=== PATIENT | female | born 1930 | race Caucasian/White ===

== ENCOUNTER 2017-06-03 13:27 | Inpatient (IN) | payer OTHER, MEDICARE ==
--- NOTE | 2017-06-03 13:48 | PDOC ---
History of Present Illness - General History Source: Patient, Old Records Exam Limitations: No Limitations - History of Present Illness Initial Comments: 06/03/17 13:48 The patient is an 86-year-old woman with a significant past medical history or hypertension, hypercholesterolemia, atrial fibrillation (on Xarelto), congestive heart failure (on Lasix), cerebrovascular accident and thyroid disease who was advised to present to the emergency department by her PMD, Dr. Berumen for further evaluation of shortness of breath. As per patient;s daughter , she states that the patient has been progressively short of breath for the past few weeks. Patient was evaluated by Dr. Berumen, on May 19 for which an increase in her Lasix regime was recommended. She is typically on 20 mg of Lasix Q.D, however, she was started on 60 mg // and 40 mg every other day. Despite compliance with her new regime, she returned to Dr. Berumen's office today for a follow up for which it was determined that she was only 50% better and she recommended an ED admission. As per patient, she states that she feels short of breath on exertion (walking a few steps). She denies feeling short of breath while lying flat. She also reports endorsing a mild cough with occasional phlegm. No fever, chills, weakness, chest pain, lightheadedness, dizziness, abdominal pain, back pain, nausea, vomiting, diarrhea. No urinary complaints. Allergies: Fish Containing Products. Penicillin. Past Surgical History: Left Bunionectomy Social History: Former smokes. No EtOH and recreational drug use. Primary Care Physician: Dr. Sarah Berumen <Tala Tidwell - Last Filed: 06/03/17 16:14> <Los Knight - Last Filed: 06/03/17 16:16> - General Chief Complaint: Shortness of Breath Stated Complaint: SOB (PCP SENT) Time Seen by Provider: 06/03/17 13:47 Past History <Tala Tidwell - Last Filed: 06/03/17 16:14> - Past Medical History Anemia: Yes (01/05,TOOK IRON TABLETS) Asthma: No Cancer: No Cardiac Disorders: Yes ( FIB 2006) CVA: Yes (2005) COPD: No CHF: No Dementia: No Diabetes: No GI Disorders: No Disorders: No HTN: Yes Hypercholesterolemia: Yes Liver Disease: No Suicide Attempt (Hx): No Seizures: No Thyroid Disease: Yes - Surgical History Abdominal Surgery: No Appendectomy: No Cardiac Surgery: No Cholecystectomy: No Lung Surgery: No Neurologic Surgery: No Orthopedic Surgery: Yes (LEFT BUNIONECTOMY) - Psycho/Social/Smoking Cessation Hx Anxiety: No Suicidal Ideation: No Smoking Status: Yes Smoking History: Former smoker Have you smoked in the past 12 months: No Number of Cigarettes Smoked Daily: 0 If you are a former smoker, when did you quit?: 22 YRS AGO Information on smoking cessation initiated: No Hx Alcohol Use: No Drug/Substance Use Hx: No Substance Use Type: None Hx Substance Use Treatment: No <Los Knight - Last Filed: 06/03/17 16:16> - Past Medical History Allergies/Adverse Reactions: Allergies Allergy/AdvReac Type Severity Reaction Status Date / Time Fish Containing Products Allergy Intermediate Verified 06/03/17 13:31 Penicillins Allergy Rash Verified 06/03/17 13:31 Home Medications: Ambulatory Orders Levothyroxine [Synthroid -] 50 mcg PO DAILY #0 tablet 01/24/12 Nebivolol [Bystolic -] 5 mg PO DAILY #0 tab 01/24/12 Furosemide [Lasix -] 40 mg PO DAILY 02/25/12 Rosuvastatin [Crestor -] 5 mg PO HS 04/28/12 Valsartan [Diovan] 160 mg PO DAILY 04/28/12 Rivaroxaban [Xarelto -] 10 mg PO HS 04/11/14 Oxycodone HCl 5 mg PO Q4H PRN 05/01/15 Potassium Chloride Oral Soln [KCl Oral Solution -] 20 meq PO DAILY 05/01/15 Oxycodone HCl/Acetaminophen [Percocet 5/325 -] 1 tab PO Q4H PRN #20 tablet 05/03 Review of Systems - Review of Systems Constitutional: No: Chills, Fever Respiratory: Yes: Cough, Shortness of Breath, SOB with Exertion Cardiac (ROS): No: Chest Pain ABD/GI: No: Diarrhea, Vomiting : No: Dysuria, Frequency All Other Systems: Reviewed and Negative <Los Knight - Last Filed: 06/03/17 16:16> *Physical Exam - Vital Signs Last Vital Signs Temp Pulse Resp BP Pulse Ox 97.6 F 78 22 122/67 97 06/03/17 13:32 06/03/17 13:32 06/03/17 13:32 06/03/17 13:32 06/03/17 13:32 - Physical Exam Comments: 06/03/17 13:48 GENERAL: The patient is awake, alert, and fully oriented, in no acute distress. Speaking in full sentences. HEAD: Normal with no signs of trauma. EYES: Pupils equal, round and reactive to light, extraocular movements intact, sclera anicteric, conjunctiva clear with no pallor. ENT: Ears normal, nares patent, oropharynx clear without exudates. Moist mucous membranes. NECK: Normal range of motion, supple without lymphadenopathy, JVD, or masses. LUNGS: Bilateral crackles to the mid lung [place]. HEART: Irregularly irregular rate and rhythm. ABDOMEN: Soft/nontender/nondistended. BS wnl. No guarding or rebound. No palpable masses. No hepatosplenomegaly. EXTREMITIES: Normal range of motion, 1+ edema. scattered varicosities No clubbing or cyanosis. No cords, erythema, or tenderness. NEUROLOGICAL: Cranial nerves II through XII grossly intact. Normal speech. PSYCH: Normal mood, normal affect. SKIN: Warm, Dry, normal turgor, no rashes or lesions noted. <Tala Tidwell - Last Filed: 06/03/17 16:14> - Vital Signs Last Vital Signs Temp Pulse Resp BP Pulse Ox 97.6 F 78 22 122/67 97 06/03/17 13:32 06/03/17 13:32 06/03/17 13:32 06/03/17 13:32 06/03/17 13:32 <Los Knight - Last Filed: 06/03/17 16:16> Heart Score/ECG Review #1 ECG reviewed & interpreted by me at: 14:20 Compared to previous ECG there are: No significant change (c/w 2013 EKG) 06/03/17 15:36 afib at 70, TWI AVL, isolated Q in III. no acute ST changes <Los Knight - Last Filed: 06/03/17 16:16> ED Treatment Course - LABORATORY CBC & Chemistry Diagram: 06/03/17 14:12 06/03/17 14:12 <Stone Tidwelline - Last Filed: 06/03/17 16:14> - LABORATORY CBC & Chemistry Diagram: 06/03/17 14:12 06/03/17 14:12 <Los Knight - Last Filed: 06/03/17 16:16> Medical Decision Making - Medical Decision Making 06/03/17 15:[address] Del Valle 06/03/17 15:[address] Del Valle 06/03/17 16:[address] Meghna Sparks. 06/03/17 16:[address] Caleb Madison. Immediate response. Case was discussed. <Tala Tidwell - Last Filed: 06/03/17 16:14> - Medical Decision Making 06/03/17 15:38 A portion of this note was documented by scribe services under my direction. I have reviewed the details of the note, within reason, and agree with the documentation with the following case summary and management plan written by me. 86y/o F h/o afib, mild CHF on lasix p/w progressive LOCKE despite increasing doses of lasix as outpt. no cp, mild dry cough, no wt loss/night sweats. + edema. VSS well appearing, speaking full sentences b/l crackles to mid lung [place] irregular abd soft 1+ edema, scattered varicosities 86y/o F with worsening LOCKE. labs wnl: trop negative, BNP slightly above baseline, Cr 1.6 ekg as noted CXR, on my prelim review, shows Left middle lobe density/consolidation. not consistent with pna, will check noncontrast CT given Cr 1.6. dose iv lasix given b/l crackles/pulmonary edema proceed with admission plan as per Dr. Berumen. 06/03/17 16:16 Accepted for obs tele by Dr. Madison, admitting for Dr. Berumen. Dr. Cali, patient's computer systems security analyst, consulted. <Los Knight - Last Filed: 06/03/17 16:16> *DC/Admit/Observation/Transfer - Attestations Scribe Attestion: 06/03/17 14:28 Documentation prepared by Tala Tidwell, acting as medical claims processor for Los Knight MD. <Tala Tidwell - Last Filed: 06/03/17 16:14> - Discharge Dispostion Admit: Yes <Los Knight - Last Filed: 06/03/17 16:16> Diagnosis at time of Disposition: Dyspnea on exertion - Discharge Dispostion Condition at time of disposition: Fair - Referrals Referrals: Sarah Berumen MD [Primary Care Provider] -
[2017-06-03 14:36] LABS: BASOPHIL 1.1 % (0-2.0); EOSINOPHIL 2.2 % (0-4.5); MCH 28.6 pg (25.7-33.7); MCHC 33.6 g/dl (32.0-36.0); MEAN CELL VOLUME 85.2 fl (80-96); MEAN PLT VOLUME 8.4 fl (7.5-11.1); NEUTROPHILS 69.4 % (42.8-82.8); PLATELET COUNT 267 K/MM3 (134-434); RDW 16.2 % (11.6-15.6); WHITE BLOOD COUNT 6.4 K/mm3 (4.0-10.0)
[2017-06-03 14:57] LABS: ALBUMIN 3.7 g/dl (3.4-5.0); ANION GAP 10 (8-16); BILIRUBIN,TOTAL 0.3 mg/dL (0.2-1.0); CO2 23 mmol/L (21-32); CREATININE 1.6 mg/dL (0.55-1.02); GLUCOSE,RANDOM 114 mg/dL (74-106); MAGNESIUM 2.2 mg/dL (1.8-2.4); SGOT/AST 17 U/L (15-37); SGPT/ALT 15 U/L (12-78); TOT PROT 6.9 g/dl (6.4-8.2)
[2017-06-03 14:59] LABS: ALK PHOS 63 U/L (45-117); TROPONIN I < 0.02 ng/ml (0.00-0.05)
[2017-06-03 15:14] LABS: INR 1.28 (0.82-1.09); PROTHROMBIN TIME (PATIENT) 14.1 SEC (9.98-11.88)
[2017-06-03] MEDS ORDERED: FUROSEMIDE 40 MG/4 ML INJECTABLE VIAL IVPUSH ONE (15:15)
[2017-06-03] MEDS ORDERED: FUROSEMIDE 40 MG/4 ML INJECTABLE VIAL ONE (15:30)
--- NOTE | 2017-06-03 16:45 | EKG ---
Test Reason : Blood Pressure : / mmHG Vent. Rate : 070 BPM Atrial Rate : 058 BPM P-R Int : 000 ms QRS Dur : 082 ms QT Int : 414 ms P-R-T Axes : 000 015 075 degrees QTc Int : 447 ms ATRIAL FIBRILLATION WITH MODERATE VENTRICULAR RESPONSE POSSIBLE INFERIOR INFARCT , AGE UNDETERMINED CANNOT RULE OUT ANTERIOR INFARCT , AGE UNDETERMINED ABNORMAL ECG WHEN COMPARED WITH ECG OF 24-APR-2015 14:16, ATRIAL FIBRILLATION HAS REPLACED SINUS RHYTHM CORELATE CLINICALLY AND REPEAT ECG IF INDICATED Confirmed by KERRI MERCADO MD ([id number]) on 06/03/2017 4:44:48 PM Referred By: Confirmed By:KERRI MERCADO MD
[2017-06-03 18:36] VITALS: BMI 29.3
[2017-06-03] MEDS ORDERED: ACETAMINOPHEN 325 MG TABLET (FP) PO PRN (19:37)
[2017-06-03] MEDS: ATORVASTATIN CA 10 MG TABLET (FP) PO SCH (21:52)
[2017-06-03] MEDS: RIVAROXABAN 10 MG TABLET PO SCH (21:52)
--- NOTE | 2017-06-04 01:46 | CON.CARD ---
Consult Consult Specialty:: cardiology Reason for Consultation:: shortness of breath - History of Present Illness Chief Complaint: A&O; less short of breath, but still dyspneic on minimal exertion; anxious History of Present Illness: The patient is an 86-year-old woman with a significant past medical history or hypertension, hypercholesterolemia, atrial fibrillation (on Xarelto), congestive heart failure (on Lasix), cerebrovascular accident and thyroid disease who was advised to present to the emergency department by her PMD, Dr. Berumen for further evaluation of shortness of breath. As per patient;s daughter , she states that the patient has been progressively short of breath for the past few weeks. Patient was evaluated by Dr. Berumen, on May 19 for which an increase in her Lasix regime was recommended. She is typically on 20 mg of Lasix Q.D, however, she was started on 60 mg // and 40 mg every other day. Despite compliance with her new regime, she returned to Dr. Berumen's office today for a follow up for which it was determined that she was only 50% better and she recommended an ED admission. As per patient, she states that she feels short of breath on exertion (walking a few steps). She denies feeling short of breath while lying flat. She also reports endorsing a mild cough with occasional phlegm. No fever, chills, weakness, chest pain, lightheadedness, dizziness, abdominal pain, back pain, nausea, vomiting, diarrhea. No urinary complaints. Allergies: Fish Containing Products. Penicillin. Past Surgical History: Left Bunionectomy Social History: Former smokes. No EtOH and recreational drug use. Primary Care Physician: Dr. Sarah Berumen - History Source History Provided By: Medical Record - Past Medical History Cardio/Vascular: Yes: AFIB, HTN Reproductive: Yes: Postmenopausal ...: No Endocrine: Yes: Hypothyroidism - Alcohol/Substance Use Hx Alcohol Use: No - Smoking History Smoking history: Former smoker Have you smoked in the past 12 months: No Aproximately how many cigarettes per day: 0 If you are a former smoker, when did you quit?: 22 YRS AGO Home Medications - Allergies Allergies/Adverse Reactions: Allergies Allergy/AdvReac Type Severity Reaction Status Date / Time Fish Containing Products Allergy Intermediate Verified 06/03/17 13:31 Penicillins Allergy Rash Verified 06/03/17 13:31 - Home Medications Home Medications: Ambulatory Orders Nebivolol [Bystolic -] 5 mg PO DAILY #0 tab 01/24/12 Valsartan [Diovan] 160 mg PO DAILY 04/28/12 Rivaroxaban [Xarelto -] 10 mg PO HS 04/11/14 Levothyroxine [Synthroid -] 88 mcg PO MOTUWETHFR 06/03/17 Simvastatin [Zocor -] 5 mg PO HS 06/03/17 Aclidinium [place] [Tudorza -] 1 inh PO BID #1 aero.powd 06/05/17 Furosemide [Lasix] 40 mg PO DAILY #30 tablet 06/05/17 Levothyroxine [Synthroid -] 100 mcg PO SUSA #60 tab 06/05/17 Review of Systems - Review of Systems Constitutional: reports: Weakness Eyes: reports: No Symptoms HENT: reports: No Symptoms Neck: reports: No Symptoms Cardiovascular: reports: Shortness of Breath Respiratory: reports: SOB Gastrointestinal: reports: No Symptoms Genitourinary: reports: No Symptoms Breasts: reports: No Symptoms Reported Musculoskeletal: reports: Muscle Weakness Integumentary: reports: No Symptoms Neurological: reports: No Symptoms Psychiatric: reports: Anxiety - Risk Factors Known Risk Factors: Yes: Age, Hypercholesterolemia, Hypertension, Other (AF) Vital Signs: Vital Signs Temperature 97.7 F 06/03/17 22:00 Pulse Rate 77 06/03/17 22:00 Respiratory Rate 18 06/03/17 22:00 Blood Pressure 113/56 06/03/17 22:00 O2 Sat by Pulse Oximetry (%) 97 06/03/17 21:00 Constitutional: Yes: Anxious Eyes: Yes: WNL HENT: Yes: WNL Neck: Yes: WNL Respiratory: Yes: Regular Gastrointestinal: Yes: Soft Renal/: No: Anuria Cardiovascular: Yes: Pulse Irregular JVD: No Carotid Bruit: No PMI: Displaced Heart Sounds: Yes: S1 (varies in intensity) Murmur: Yes: Systolic Murmur, Grade 2 Musculoskeletal: Yes: Muscle Weakness Edema: No Peripheral Pulses WNL: Yes Integumentary: Yes: WNL Neurological: Yes: Alert, Oriented, Weakness Psychiatric: Yes: Other - Other Data Labs, Other Data: INR, PTT INR 1.28 (0.82-1.09) H 06/03/17 14:12 Imaging - Results Chest X-ray: Image Reviewed (no acute pathology) EKG: Image Reviewed (AF (which has replaced NSR)) Problem List - Problems (1) Dyspnea Code(s): R06.00 - DYSPNEA, UNSPECIFIED (2) Atrial fibrillation Assessment/Plan: on Bystolic and rivaroxaban. F/u ECHO (LVEF; chamber sizes; valve status). Code(s): I48.91 - UNSPECIFIED ATRIAL FIBRILLATION (3) Hypertension Code(s): I10 - ESSENTIAL (PRIMARY) HYPERTENSION (4) Hypothyroid Code(s): E03.9 - HYPOTHYROIDISM, UNSPECIFIED (5) Congestive heart disease Assessment/Plan: Elevated BNP; dyspnea. F/u ECHO for LVEF, valve status. TSH. On beta blockers, ACEI; furosemide given. Is and Os, daily weight, BUN/Cr, electrolytes. Code(s): I50.9 - HEART FAILURE, UNSPECIFIED Qualifiers: Congestive heart failure type: diastolic Congestive heart failure chronicity: acute on chronic Qualified Code(s): I50.33 - Acute on chronic diastolic (congestive) heart failure (6) Hyperlipidemia Code(s): E78.5 - HYPERLIPIDEMIA, UNSPECIFIED Qualifiers: Hyperlipidemia type: pure hypercholesterolemia Qualified Code(s): E78.00 - Pure hypercholesterolemia, unspecified; E78.0 - Pure hypercholesterolemia
[2017-06-04] MEDS: LEVOTHYROXINE NA 88 MCG TABLET (FP) PO SCH (06:33)
[2017-06-04 08:02] LABS: MCHC 32.7 g/dl (32.0-36.0); MEAN CELL VOLUME 85.7 fl (80-96); MEAN PLT VOLUME 8.6 fl (7.5-11.1); NEUTROPHILS 61.4 % (42.8-82.8); PLATELET COUNT 236 K/MM3 (134-434); RDW 16.4 % (11.6-15.6)
[2017-06-04 09:18] LABS: ALBUMIN 3.5 g/dl (3.4-5.0); ANION GAP 11 (8-16); CALCIUM 8.8 mg/dL (8.5-10.1); CO2 26 mmol/L (21-32); GLUCOSE,RANDOM 85 mg/dL (74-106)
--- NOTE | 2017-06-04 09:25 | PN ---
Progress Note, Physician History of Present Illness: History of Present Illness: The patient is an 86-year-old woman with a significant past medical history or hypertension, hypercholesterolemia, atrial fibrillation (on Xarelto), congestive heart failure (on Lasix), cerebrovascular accident and thyroid disease who was advised to present to the emergency department by her PMD, Dr. Berumen for further evaluation of shortness of breath. As per patient;s daughter , she states that the patient has been progressively short of breath for the past few weeks. Patient was evaluated by Dr. Berumen, on May 19 for which an increase in her Lasix regime was recommended. She is typically on 20 mg of Lasix Q.D, however, she was started on 60 mg // and 40 mg every other day. Despite compliance with her new regime, she returned to Dr. Berumen's office today for a follow up for which it was determined that she was only 50% better and she recommended an ED admission. - Current Medication List Current Medications: Active Medications Acetaminophen (Tylenol -) 650 mg PO Q6H PRN PRN Reason: FEVER OR PAIN Atorvastatin Calcium (Lipitor -) 10 mg PO [facility] Last Admin: 06/03/17 21:52 Dose: 10 mg Furosemide (Lasix Injection -) 40 mg IVPUSH DAILY COUNTS INCLUDE 234 BEDS AT THE [facility] Levothyroxine Sodium (Synthroid -) 100 mcg PO SUSA COUNTS INCLUDE 234 BEDS AT THE [facility] Levothyroxine Sodium (Synthroid -) 88 mcg PO MOTUWETHFR COUNTS INCLUDE 234 BEDS AT THE [facility] Last Admin: 06/04/17 06:33 Dose: 88 mcg Nebivolol (Bystolic -) 5 mg PO DAILY COUNTS INCLUDE 234 BEDS AT THE [facility] Rivaroxaban (Xarelto -) 10 mg PO [facility] Last Admin: 06/03/17 21:52 Dose: 10 mg Valsartan (Diovan -) 160 mg PO DAILY COUNTS INCLUDE 234 BEDS AT THE [facility] - Objective Vital Signs: Vital Signs Temperature 97.7 F 06/04/17 07:16 Pulse Rate 69 06/04/17 07:16 Respiratory Rate 18 06/04/17 07:18 Blood Pressure 130/74 06/04/17 07:16 O2 Sat by Pulse Oximetry (%) 98 06/04/17 07:18 Eyes: Yes: WNL, Conjunctiva Clear, EOM Intact HENT: Yes: WNL, Atraumatic, Normocephalic Neck: Yes: WNL, Supple, Trachea Midline Cardiovascular: Yes: WNL, Pulse Irregular Respiratory: Yes: WNL, Regular, CTA Bilaterally Gastrointestinal: Yes: WNL, Normal Bowel Sounds Genitourinary: Yes: WNL Musculoskeletal: Yes: WNL Extremities: Yes: WNL Edema: No Integumentary: Yes: WNL Neurological: Yes: WNL, Alert, Oriented ...Motor Strength: WNL Psychiatric: Yes: WNL Labs: CBC, BMP 06/04/17 05:48 06/04/17 05:48 INR, PTT INR 1.28 (0.82-1.09) H 06/03/17 14:12 Assessment/Plan Problems (1) Dyspnea Code(s): R06.00 - DYSPNEA, UNSPECIFIED (2) Atrial fibrillation Assessment/Plan: on Bystolic and rivaroxaban. F/u ECHO (LVEF; chamber sizes; valve status). Code(s): I48.91 - UNSPECIFIED ATRIAL FIBRILLATION (3) Hypertension Code(s): I10 - ESSENTIAL (PRIMARY) HYPERTENSION (4) Hypothyroid Code(s): E03.9 - HYPOTHYROIDISM, UNSPECIFIED (5) Congestive heart disease Assessment/Plan: Elevated BNP; dyspnea. F/u ECHO for LVEF, valve status. TSH. On beta blockers, ACEI; furosemide given. Is and Os, daily weight, BUN/Cr, electrolytes. Code(s): I50.9 - HEART FAILURE, UNSPECIFIED (6) Hyperlipidemia Code(s): E78.5 - HYPERLIPIDEMIA, UNSPECIFIED
[2017-06-04 09:26] LABS: ALK PHOS 59 U/L (45-117); BILIRUBIN,TOTAL 0.4 mg/dL (0.2-1.0); CHOLESTEROL 120 mg/dL (50-200); CREATININE 1.5 mg/dL (0.55-1.02); SGOT/AST 21 U/L (15-37); SGPT/ALT 13 U/L (12-78); TOT PROT 6.5 g/dl (6.4-8.2); TROPONIN I < 0.02 ng/ml (0.00-0.05)
[2017-06-04] MEDS: NEBIVOLOL 10 MG TABLET (FP) PO SCH (09:41)
[2017-06-04] MEDS: VALSARTAN 160 MG TABLET (UD) PO SCH (09:41)
[2017-06-04] MEDS: FUROSEMIDE 40 MG/4 ML INJECTABLE VIAL IVPUSH SCH (09:42)
--- NOTE | 2017-06-04 10:11 | HP ---
Admitting History and Physical - Primary Care Physician PCP: Sarah Berumen - Admission Chief Complaint: SOB History of Present Illness: -ER HISTORY- History of Present Illness Initial Comments: 06/03/17 13:48 The patient is an 86-year-old woman with a significant past medical history or hypertension, hypercholesterolemia, atrial fibrillation (on Xarelto), congestive heart failure (on Lasix), cerebrovascular accident and thyroid disease who was advised to present to the emergency department by her PMD, Dr. Berumen for further evaluation of shortness of breath. As per patient;s daughter , she states that the patient has been progressively short of breath for the past few weeks. Patient was evaluated by Dr. Berumen, on May 19 for which an increase in her Lasix regime was recommended. She is typically on 20 mg of Lasix Q.D, however, she was started on 60 mg // and 40 mg every other day. Despite compliance with her new regime, she returned to Dr. Berumen's office today for a follow up for which it was determined that she was only 50% better and she recommended an ED admission. As per patient, she states that she feels short of breath on exertion (walking a few steps). She denies feeling short of breath while lying flat. She also reports endorsing a mild cough with occasional phlegm. No fever, chills, weakness, chest pain, lightheadedness, dizziness, abdominal pain, back pain, nausea, vomiting, diarrhea. No urinary complaints. Allergies: Fish Containing Products. Penicillin. Past Surgical History: Left Bunionectomy Social History: Former smokes. No EtOH and recreational drug use. Primary Care Physician: Dr. Sarah Berumen Pt examined by me in Telemetry Today feels better No chest pain Has been feeling SOB for the past few weeks-- Lasix increased by her PMD Still felt SOB and went to see her PMD , sent her to ER for IV lasix History Source: Patient Limitations to Obtaining History: No Limitations - Past Medical History Cardiovascular: Yes: AFIB, CHF, HTN ...: No Endocrine: Yes: Hypothyroidism - Smoking History Smoking history: Former smoker Have you smoked in the past 12 months: No Aproximately how many cigarettes per day: 0 If you are a former smoker, when did you quit?: 22 YRS AGO - Alcohol/Substance Use Hx Alcohol Use: No Home Medications - Allergies Allergies/Adverse Reactions: Allergies Allergy/AdvReac Type Severity Reaction Status Date / Time Fish Containing Products Allergy Intermediate Verified 06/03/17 13:31 Penicillins Allergy Rash Verified 06/03/17 13:31 - Home Medications Home Medications: Ambulatory Orders Nebivolol [Bystolic -] 5 mg PO DAILY #0 tab 01/24/12 Furosemide [Lasix -] 40 mg PO SUTUTHSA 02/25/12 Valsartan [Diovan] 160 mg PO DAILY 04/28/12 Rivaroxaban [Xarelto -] 10 mg PO HS 04/11/14 Furosemide [Lasix -] 60 mg PO MOWEFR 06/03/17 Levothyroxine [Synthroid -] 88 mcg PO MOTUWETHFR 06/03/17 Levothyroxine [Synthroid -] 100 mcg PO SUSA 06/03/17 Simvastatin [Zocor -] 5 mg PO HS 06/03/17 Review of Systems - Review of Systems Constitutional: denies: Chills, Fever Cardiovascular: reports: Shortness of Breath. denies: Chest Pain, Edema, Palpitations Physical Examination Vital Signs: Vital Signs Temperature 97.7 F 06/04/17 07:16 Pulse Rate 69 06/04/17 07:16 Respiratory Rate 18 06/04/17 07:18 Blood Pressure 130/74 06/04/17 07:16 O2 Sat by Pulse Oximetry (%) 98 06/04/17 07:18 Constitutional: Yes: No Distress, Calm Cardiovascular: Yes: Pulse Irregular Respiratory: Yes: Diminished, Rales (bases B/L) Gastrointestinal: Yes: Normal Bowel Sounds, Soft, Abdomen, Obese. No: Tenderness Edema: No Psychiatric: Yes: Alert, Oriented Labs: CBC, BMP 06/04/17 05:48 06/04/17 05:48 Imaging - Results Chest X-ray: Image Reviewed (clear) Cat Scan: Report Reviewed EKG: Image Reviewed (Afib) Problem List - Problems (1) Congestive heart disease Code(s): I50.9 - HEART FAILURE, UNSPECIFIED Qualifiers: Congestive heart failure type: diastolic Congestive heart failure chronicity: acute on chronic Qualified Code(s): I50.33 - Acute on chronic diastolic (congestive) heart failure (2) Dyspnea on exertion Code(s): R06.09 - OTHER FORMS OF DYSPNEA (3) Hyperlipidemia Code(s): E78.5 - HYPERLIPIDEMIA, UNSPECIFIED Qualifiers: Hyperlipidemia type: pure hypercholesterolemia Qualified Code(s): E78.00 - Pure hypercholesterolemia, unspecified; E78.0 - Pure hypercholesterolemia (4) Hypertension Code(s): I10 - ESSENTIAL (PRIMARY) HYPERTENSION (5) COPD (chronic obstructive pulmonary disease) Code(s): J44.9 - CHRONIC OBSTRUCTIVE PULMONARY DISEASE, UNSPECIFIED Assessment/Plan PLAN Telemetry monitoring IV Lasix-- check renal function dyspnea maybe due to COPD, emphysema and CHF check I and O Continue with Xarelto OOB daily Nebs as needed DVT prophylaxis-- Xarelto Time spent 40 min
[2017-06-04 11:43] LABS: LDL CHOLESTEROL (ONLY SJRH) 73 mg/dL (5-100)
[2017-06-04] MEDS ORDERED: MAG HYDROX/AL HYDROX/SIMETH 30 ML UNIT-DOSE CUP PO ONE (21:15)
[2017-06-04] MEDS: ATORVASTATIN CA 10 MG TABLET (FP) PO SCH (21:58)
[2017-06-04] MEDS: ACLIDINIUM BROMIDE 400 MCG/INH AERO.POWD IH SCH (21:58)
[2017-06-04] MEDS: RIVAROXABAN 10 MG TABLET PO SCH (21:59)
[2017-06-05] MEDS: LEVOTHYROXINE NA 88 MCG TABLET (FP) PO SCH (06:44)
[2017-06-05 08:27] LABS: CALCIUM 8.8 mg/dL (8.5-10.1)
[2017-06-05 09:46] LABS: CREATININE 1.6 mg/dL (0.55-1.02); GLUCOSE,RANDOM 89 mg/dL (74-106); MAGNESIUM 2.2 mg/dL (1.8-2.4); THYROID STIMULATING HORMONE 5.13 uIU/ml (0.358-3.74)
[2017-06-05] MEDS: NEBIVOLOL 10 MG TABLET (FP) PO SCH (10:07)
[2017-06-05] MEDS: VALSARTAN 160 MG TABLET (UD) PO SCH (10:08)
[2017-06-05] MEDS: ACLIDINIUM BROMIDE 400 MCG/INH AERO.POWD IH SCH (10:08)
[2017-06-05] MEDS: FUROSEMIDE 40 MG/4 ML INJECTABLE VIAL IVPUSH SCH (10:08)
--- NOTE | 2017-06-05 10:49 | DS ---
Physical Examination Vital Signs: Vital Signs Temperature 98.3 F 06/05/17 06:00 Pulse Rate 69 06/05/17 06:00 Respiratory Rate 20 06/05/17 06:00 Blood Pressure 129/71 06/05/17 06:00 O2 Sat by Pulse Oximetry (%) 95 06/04/17 21:00 Constitutional: Yes: No Distress, Calm Cardiovascular: Yes: Regular Rate and Rhythm Respiratory: Yes: Diminished. No: Rales, Rhonchi Gastrointestinal: Yes: Normal Bowel Sounds, Soft. No: Tenderness Edema: No Labs: CBC, BMP 06/04/17 05:48 06/05/17 05:45 Discharge Summary Reason For Visit: DYSPNEA ON EXERTION Current Active Problems Atrial fibrillation (Acute) COPD (chronic obstructive pulmonary disease) (Acute) Congestive heart disease (Acute) Dyspnea (Acute) Dyspnea on exertion (Acute) Hyperlipidemia (Acute) Hypertension (Acute) Hypothyroid (Acute) Hospital Course: Admitted for CHF decompensation- diastolic [place] has COPD seen by Cardiology On IV lasix Diuresed well Synthroid adjusted No SOB on ambulation Stable for dc home Condition: Fair - Instructions Diet, Activity, Other Instructions: check thyroid function tests in 1 month Take Synthroid 88 mcg daily Mon- joe and 100mcg on Fri- Sat- Sun Referrals: Sarah Berumen MD [Primary Care Provider] - Disposition: HOME - Home Medications Comprehensive Discharge Medication List: Ambulatory Orders Nebivolol [Bystolic -] 5 mg PO DAILY #0 tab 01/24/12 Furosemide [Lasix -] 40 mg PO SUTUTHSA 02/25/12 Valsartan [Diovan] 160 mg PO DAILY 04/28/12 Rivaroxaban [Xarelto -] 10 mg PO HS 04/11/14 Furosemide [Lasix -] 60 mg PO MOWEFR 06/03/17 Levothyroxine [Synthroid -] 88 mcg PO MOTUWETHFR 06/03/17 Levothyroxine [Synthroid -] 100 mcg PO SUSA 06/03/17 Simvastatin [Zocor -] 5 mg PO HS 06/03/17
[2017-06-05 11:24] VITALS: BP 126/70; PULSE 68; TEMP 97.5
[2017-06-05 11:44] LABS: ANION GAP 12 (8-16); CO2 23 mmol/L (21-32)
[2017-06-05 13:21] LABS: FREE T4 1.25 ng/dl (0.76-1.46)
--- NOTE | 2017-06-05 13:23 | PN ---
Progress Note, Physician Chief Complaint: Pt A&Ox3; anxious, wanting to go home. No chest pain, palpitations, or dyspnea. Son(Marvin) is at bedside. History of Present Illness: The patient is an 86-year-old woman with a significant past medical history or hypertension, hypercholesterolemia, atrial fibrillation (on Xarelto), congestive heart failure (on Lasix), cerebrovascular accident and thyroid disease who was advised to present to the emergency department by her PMD, Dr. Berumen for further evaluation of shortness of breath. As per patient;s daughter , she states that the patient has been progressively short of breath for the past few weeks. Patient was evaluated by Dr. Berumen, on May 19 for which an increase in her Lasix regime was recommended. She is typically on 20 mg of Lasix Q.D, however, she was started on 60 mg // and 40 mg every other day. Despite compliance with her new regime, she returned to Dr. Berumen's office today for a follow up for which it was determined that she was only 50% better and she recommended an ED admission. As per patient, she states that she feels short of breath on exertion (walking a few steps). She denies feeling short of breath while lying flat. She also reports endorsing a mild cough with occasional phlegm. No fever, chills, weakness, chest pain, lightheadedness, dizziness, abdominal pain, back pain, nausea, vomiting, diarrhea. No urinary complaints. Allergies: Fish Containing Products. Penicillin. Past Surgical History: Left Bunionectomy Social History: Former smokes. No EtOH and recreational drug use. Primary Care Physician: Dr. Sarah Berumen - Current Medication List Current Medications: Active Medications Acetaminophen (Tylenol -) 650 mg PO Q6H PRN PRN Reason: FEVER OR PAIN Aclidinium [place] (Tudorza -) 1 puff IH BID [facility] Last Admin: 06/05/17 10:08 Dose: 1 puff Atorvastatin Calcium (Lipitor -) 10 mg PO HS [facility] Last Admin: 06/04/17 21:58 Dose: 10 mg Furosemide (Lasix Injection -) 40 mg IVPUSH DAILY [facility] Last Admin: 06/05/17 10:08 Dose: 40 mg Levothyroxine Sodium (Synthroid -) 100 mcg PO SUSA [facility] Levothyroxine Sodium (Synthroid -) 88 mcg PO MOTUWETHFR [facility] Last Admin: 06/05/17 06:44 Dose: 88 mcg Nebivolol (Bystolic -) 5 mg PO DAILY [facility] Last Admin: 06/05/17 10:07 Dose: 5 mg Rivaroxaban (Xarelto -) 10 mg PO HS [facility] Last Admin: 06/04/17 21:59 Dose: 10 mg Valsartan (Diovan -) 160 mg PO DAILY [facility] Last Admin: 06/05/17 10:08 Dose: 160 mg - Objective Vital Signs: Vital Signs Temperature 97.5 F L 06/05/17 10:00 Pulse Rate 68 06/05/17 10:00 Respiratory Rate 20 06/05/17 10:00 Blood Pressure 126/70 06/05/17 10:00 O2 Sat by Pulse Oximetry (%) 96 06/05/17 09:00 Constitutional: Yes: Anxious Eyes: Yes: WNL HENT: Yes: WNL Neck: Yes: WNL Cardiovascular: Yes: Regular Rate and Rhythm Respiratory: Yes: Regular Gastrointestinal: Yes: Soft ...Rectal Exam: Yes: Deferred Genitourinary: No: Anuria Breast(s): Yes: WNL Musculoskeletal: Yes: Joint Stiffness (left knee>Rt), Muscle Weakness Extremities: Yes: Cool, Other (s/p left TKR) Edema: No Peripheral Pulses WNL: Yes Integumentary: Yes: WNL Neurological: Yes: Alert, Oriented, Weakness Psychiatric: Yes: Other (anxiety) Labs: CBC, BMP 06/04/17 05:48 06/05/17 05:45 INR, PTT INR 1.28 (0.82-1.09) H 06/03/17 14:12 Abnormal Lab Results 06/05/17 05:45 BUN 38 H Creatinine 1.6 H TSH 5.13 H D - ....Imaging Other: Other (Telemetry: NSR; occasional APCs) Problem List - Problems (1) Dyspnea Code(s): R06.00 - DYSPNEA, UNSPECIFIED (2) Atrial fibrillation Assessment/Plan: AF with controlled VR. on Bystolic and rivaroxaban. ECHO: normal LVEF; moderate CA Code(s): I48.91 - UNSPECIFIED ATRIAL FIBRILLATION (3) Hypertension Code(s): I10 - ESSENTIAL (PRIMARY) HYPERTENSION (4) Hypothyroid Assessment/Plan: Elevated TSH. f/u free TE and T4 Code(s): E03.9 - HYPOTHYROIDISM, UNSPECIFIED (5) Congestive heart disease Assessment/Plan: Acute/chronic diastolic CHF. Decrease furosemide to prn (every other day for the prestne); f/u BUN/Cr, electorlytes. Long discussion was had with pt and her son. She is self=described as "lazy", and essentially is bed-bound at home. She apparently does not want to go outside because she uses a cane (s/p Lt TKR; right knee arhtitis), and does not want to look like an "old lady". He son lives next door, and has had the sidewalk smoothed out. The importance of strengthening the heart and body with exercise was explained. She agrees to start daily walk (she used to be quite physically active). From a cardiac pedrspective, pt may be followed as an outpatient. Code(s): I50.9 - HEART FAILURE, UNSPECIFIED Qualifiers: Congestive heart failure type: diastolic Congestive heart failure chronicity: acute on chronic Qualified Code(s): I50.33 - Acute on chronic diastolic (congestive) heart failure (6) Hyperlipidemia Assessment/Plan: toptal cholesterol 120 mg/dL Code(s): E78.5 - HYPERLIPIDEMIA, UNSPECIFIED Qualifiers: Hyperlipidemia type: pure hypercholesterolemia Qualified Code(s): E78.00 - Pure hypercholesterolemia, unspecified; E78.0 - Pure hypercholesterolemia
[2017-06-07] MEDS ORDERED: LEVOTHYROXINE NA 50 MCG TABLET (FP) PO SCH (07:00)
== END 2017-06-05 14:02 | disposition home or self-care (01) | DRG 293 ==
LOC: JER 13:27 → JERBED 16:16 → J4W 18:45 → OBSVTOIN 19:37
PROVIDERS: ADMIT Internal Medicine; ATTEND Internal Medicine
DX: I11.0 Hypertensive heart disease with heart failure (principal); I50.33 Acute on chronic diastolic (congestive) heart failure; E03.9 Hypothyroidism, unspecified; I48.91 Unspecified atrial fibrillation; E78.5 Hyperlipidemia, unspecified; J44.9 Chronic obstructive pulmonary disease, unspecified; Z87.891 Personal history of nicotine dependence
CPT/HCPCS: 36415; 71020-TC; 71250-TC; 80048; 80053; 80061; 82550; 82553; 83721; 83735; 83880; 84439; 84443; 84481; 84484; 85025; 85610; 86850; 86900; 86901; 93005; 93010; 93306-TC; 99283-25; G0378

== ENCOUNTER 2017-11-03 23:13 | Emergency (ER) | payer OTHER, MEDICARE ==
[2017-11-04 00:22] VITALS: BP 132/72; PULSE 60; BMI 30.4
[2017-11-04] MEDS ORDERED: OXYMETAZOLINE 0.05% NASAL SOLUTION 15 ML BOTTLE NS ONE (00:30)
--- NOTE | 2017-11-04 00:33 | PDOC ---
History of Present Illness - General Chief Complaint: Nasal Bleeding Stated Complaint: BLOODY NOSE Time Seen by Provider: 11/04/17 00:25 History Source: Patient - History of Present Illness Initial Comments: 11/04/17 00:30 87 year old female with bleeding from the right nare since 9 pm. bleeding now controlled with compression. patient has a past medical history of Afib on xarelto, thyroid CA s/p resection, hypothyroidism, Hypercholestremia. patient denies, headache, dizziness, chest pain, NV, abdominal pain. 11/04/17 00:34 Past History - Past Medical History Allergies/Adverse Reactions: Allergies Allergy/AdvReac Type Severity Reaction Status Date / Time Fish Containing Products Allergy Intermediate Verified 11/04/17 00:20 aspirin Allergy Verified 11/04/17 00:20 Penicillins Allergy Rash Verified 11/04/17 00:20 Home Medications: Ambulatory Orders Nebivolol [Bystolic -] 5 mg PO DAILY #0 tab 01/24/12 Valsartan [Diovan] 160 mg PO DAILY 04/28/12 Rivaroxaban [Xarelto -] 10 mg PO HS 04/11/14 Levothyroxine [Synthroid -] 88 mcg PO MOTUWETHFR 06/03/17 Simvastatin [Zocor -] 5 mg PO HS 06/03/17 Aclidinium [place] [Tudorza -] 1 inh PO BID #1 aero.powd 06/05/17 Furosemide [Lasix] 20 mg PO Q2D #60 tablet 06/05/17 Levothyroxine [Synthroid -] 100 mcg PO SUSA #60 tab 06/05/17 Anemia: Yes (01/05,TOOK IRON TABLETS) Asthma: No Cancer: No Cardiac Disorders: Yes ( FIB 2006) CVA: Yes (2005) COPD: No CHF: No Dementia: No Diabetes: No GI Disorders: No Disorders: No HTN: Yes Hypercholesterolemia: Yes Liver Disease: No Seizures: No Thyroid Disease: Yes - Surgical History Abdominal Surgery: No Appendectomy: No Cardiac Surgery: No Cholecystectomy: No Lung Surgery: No Neurologic Surgery: No Orthopedic Surgery: Yes (LEFT BUNIONECTOMY) - Suicide/Smoking/Psychosocial Hx Smoking Status: Yes Smoking History: Never smoked Have you smoked in the past 12 months: No Number of Cigarettes Smoked Daily: 0 If you are a former smoker, when did you quit?: 22 YRS AGO Information on smoking cessation initiated: No Hx Alcohol Use: No Drug/Substance Use Hx: No Substance Use Type: None Hx Substance Use Treatment: No Review of Systems - Review of Systems Able to Perform ROS?: Yes Is the patient limited Pashto proficient: No HEENTM: Yes: Nose Bleeding. No: Symptoms Reported, See HPI, Eye Pain, Blurred Vision, Tearing, Recent change in vision, Double Vision, Cataracts, Ear Pain, Ocular Prothesis, Ear Discharge, Nose Pain, Nose Congestion, Tinnitus, Hearing Loss, Throat Pain, Throat Swelling, Mouth Pain, Dental Problems, Difficulty Swallowing, Mouth Swelling, Other *Physical Exam - Vital Signs Last Vital Signs Temp Pulse Resp BP Pulse Ox 60 14 132/72 98 11/04/17 00:20 11/04/17 00:20 11/04/17 00:20 11/04/17 00:20 - Physical Exam General Appearance: Yes: Appropriately Dressed HEENT: positive: Other (right nare ). negative: EOMI, KHADIJAH, Normal ENT Inspection, Normal Voice, Symmetrical, TMs Normal, Pharynx Normal, Pale Conjunctivae, Photophobia, Scleral Icterus (R), Scleral Icterus (L), Muffled/ Hoarse voice, Pharyngeal Erythema, Tonsillar Exudate, Tonsillar Erythema, Nasal Congestion, Rhinorrhea, Sinus Tenderness, Orbits, Hearing Decreased, Hearing Grossly Normal, TM Bulging, TM Dull, TM Erythema, Lesions, Box, Excessive drooling, Thrush Procedures - Consent Consent obtained: Verbal, From Patient Medical Decision Making - Medical Decision Making 11/04/17 00:35 A: epistaxis P: afrin outpatient ENT follow up 11/04/17 01:33 Alekseyrin unsuccessful. Packed right nare 5.5 cm anterior nasal packing by Dr. Hilton. patient tolerated procedure well. bleeding has stopped . patient to follow up with Dr. bryant tomorrow as outpatient. *DC/Admit/Observation/Transfer Diagnosis at time of Disposition: Epistaxis - Discharge Dispostion Disposition: HOME - Referrals Referrals: Sarah Berumen MD [Primary Care Provider] - Eliseo Bryant MD [Staff Physician] - - Patient Instructions Printed Discharge Instructions: Nosebleed Additional Instructions: sleep on 3 pillows tonight or sit upright. follow up with Dr. bryant today to remove packing. DO not blow your nose. return to the ER if symptoms worsen. - Post Discharge Activity
== END 2017-11-04 02:11 | disposition home or self-care (01) ==
LOC: JER 23:13
PROC: 2Y41X5Z Packing of Nasal Region using Packing Material (ICD-10-PCS; principal; 2017-11-03)
DX: R04.0 Epistaxis (principal); Z85.850 Personal history of malignant neoplasm of thyroid; E03.9 Hypothyroidism, unspecified; E78.00 Pure hypercholesterolemia, unspecified; I10 Essential (primary) hypertension; Z79.01 Long term (current) use of anticoagulants
CPT/HCPCS: 99281-25

== ENCOUNTER 2019-03-01 10:15 | Emergency (ER) | payer OTHER, MEDICARE ==
[2019-03-01 10:39] VITALS: TEMP 97.9; BMI 29.5
--- NOTE | 2019-03-01 11:10 | PDOC ---
History of Present Illness - General Chief Complaint: Injury Stated Complaint: FALL Time Seen by Provider: 03/01/19 11:10 - History of Present Illness Initial Comments: 88 year old female with PMH of afib (on Rivaroxiban), HTN, and hypothyroidism presenting with a fall 16 hours ago. States that she typically ambulates with assistance of a walker indoors and a cane outdoors with minor assistance of family members She was ambulating about her house yesterday evening at 20:00 when she tripped over her own foot and fell downward to her right side. She denies hitting her head or losing consciousness and remembered the entire event. She was able to pull herself up to a seated position and her daughter came in to assist her back up to her walker, after which she was able to ambulate with minor pain in her right knee and right upper arm/ shoulder. She took 500 MG of Tylenol before bed and was able to sleep fairly comfortably throughout the night. She is presenting to us today because she woke up this morning with worsening pain in her right knee and her right shoulder/ elbow. Denies any skin changes, inability to walk, nausea, vomiting, visual symptoms or other issues. Past History - Past Medical History Allergies/Adverse Reactions: Allergies Allergy/AdvReac Type Severity Reaction Status Date / Time Fish Containing Products Allergy Intermediate Verified 03/01/19 10:30 aspirin Allergy Verified 03/01/19 10:30 Penicillins Allergy Rash Verified 03/01/19 10:30 Home Medications: Ambulatory Orders Nebivolol [Bystolic -] 5 mg PO DAILY #0 tab 01/24/12 Valsartan [Diovan] 160 mg PO DAILY 04/28/12 Rivaroxaban [Xarelto -] 10 mg PO HS 04/11/14 Levothyroxine [Synthroid -] 88 mcg PO MOTUWETHFR 06/03/17 Simvastatin [Zocor -] 5 mg PO HS 06/03/17 Levothyroxine [Synthroid -] 100 mcg PO SUSA #60 tab 06/05/17 Furosemide [Lasix] 40 mg PO DAILY 03/01/19 Montelukast Sodium [Singulair] 10 mg PO HS 03/01/19 Tiotropium [place] [Spiriva Respimat] 4 gm IH BID 03/01/19 Anemia: Yes (01/05,TOOK IRON TABLETS) Asthma: No Cancer: No Cardiac Disorders: Yes (A FIB 2006) CVA: Yes (2005) COPD: No CHF: No Dementia: No Diabetes: No GI Disorders: No Disorders: No HTN: Yes Hypercholesterolemia: Yes Liver Disease: No Seizures: No Thyroid Disease: Yes - Surgical History Abdominal Surgery: No Appendectomy: No Cardiac Surgery: No Cholecystectomy: No Lung Surgery: No Neurologic Surgery: No Orthopedic Surgery: Yes (LEFT BUNIONECTOMY) - Suicide/Smoking/Psychosocial Hx Smoking Status: Yes Smoking History: Former smoker Have you smoked in the past 12 months: No Number of Cigarettes Smoked Daily: 0 If you are a former smoker, when did you quit?: 22 YRS AGO Information on smoking cessation initiated: No Hx Alcohol Use: No Drug/Substance Use Hx: No Substance Use Type: None Hx Substance Use Treatment: No Review of Systems - Review of Systems Constitutional: No: Chills, Diaphoresis, Fever HEENTM: No: Blurred Vision, Tearing Respiratory: No: Cough, Orthopnea, Shortness of Breath Cardiac (ROS): No: Chest Pain, Edema, Irregular Heart Rate ABD/GI: No: Diarrhea, Nausea, Vomiting : No: Burning, Dysuria, Discharge Musculoskeletal: Yes: Joint Pain, Joint Stiffness. No: Back Pain, Muscle Pain, Muscle Weakness Integumentary: No: Bruising, Erythema, Flushing, Lesions Neurological: No: Headache, Numbness, Paresthesia, Unsteady Gait Psychiatric: No: Anxiety, Depression Hematologic/Lymphatic: Yes: Blood Clots, Easy Bleeding *Physical Exam - Vital Signs Last Vital Signs Temp Pulse Resp BP Pulse Ox 97.9 F 99 H 20 98/60 98 03/01/19 10:38 03/01/19 10:38 03/01/19 10:38 03/01/19 10:38 03/01/19 10:38 - Physical Exam General Appearance: Yes: Nourished, Appropriately Dressed. No: Apparent Distress HEENT: positive: EOMI, KHADIJAH, Normal ENT Inspection, Normal Voice Neck: positive: Trachea midline, Normal Thyroid, Supple. negative: Tender, Rigid Respiratory/Chest: positive: Lungs Clear, Normal Breath Sounds. negative: Chest Tender, Respiratory Distress, Accessory Muscle Use Cardiovascular: positive: Regular Rhythm, Regular Rate Gastrointestinal/Abdominal: positive: Normal Bowel Sounds, Flat, Soft. negative : Tender Lymphatic: negative: Adenopathy, Tenderness Musculoskeletal: positive: Decreased Range of Motion (decreaed active ROM in the right upper extremity and right lower extremity aht the right knee. Slight tenderness over right elbow and right hip. ). negative: Normal Inspection, Vertebral Tenderness Extremity: positive: Normal Capillary Refill, Tender. negative: Normal Inspection, Normal Range of Motion Integumentary: positive: Normal Color, Dry, Warm Neurologic: positive: Fully Oriented, Alert, Normal Mood/Affect, Normal Response , Motor Strength 5/5 Medical Decision Making - Medical Decision Making 88 year old female with apparently mechanical trip and fall 16 hours prior presenting for pain in her right hip and right elbow with movement and moderate palpation. XRs/ CT C-Spine not demonstrating fractures and CT head not demonstrating intra-cranial abnormality. Patient feeling much better after 500 mg of Tylenol. Patient given contact information for Dr. Rodgers for follow up. Will DC with return precautions and follow up instructions. *DC/Admit/Observation/Transfer Diagnosis at time of Disposition: Pain, acute due to trauma Shoulder pain, right Qualifiers: Chronicity: acute Qualified Code(s): M25.511 - Pain in right shoulder - Discharge Dispostion Disposition: HOME Condition at time of disposition: Improved Decision to Admit order: No - Referrals Referrals: Bayron Rosenthal MD [Primary Care Provider] - Peyman Rodgers MD [Staff Physician] - - Patient Instructions Printed Discharge Instructions: How to Prevent Falls Additional Instructions: You have no broken bones and no bleeds in our head. Please be more careful when moving around your house. Please return to the ED if you have any new or worsening symptoms. Please return to the ED if you have new or worsening symptoms. Please follow up with the PCP for any further questions. Please make a follow up appointment with the orthopedic doctor on this paper for further evaluation. - Post Discharge Activity
[2019-03-01] MEDS ORDERED: ACETAMINOPHEN 500 MG TABLET (FP) PO ONE (11:39)
--- NOTE | 2019-03-01 11:45 | PDOC ---
Attending Attestation - Resident Resident Name: Cassidy Warren - ED Attending Attestation I have performed the following: I have examined & evaluated the patient, The case was reviewed & discussed with the resident, I agree w/resident's findings & plan, Exceptions are as noted - HPI HPI: 03/01/19 11:41 88 F with h/o hypertension, hypercholesterolemia, atrial fibrillation (on Xarelto), congestive heart failure (on Lasix), cerebrovascular accident and thyroid disease, presenting to ED with R arm and RLE pain after falling last night. Pt states that she was ambulating with her walker when her foot got caught on a rug. She fell from standing height onto her R side. Denies headstrike/LOC. Denies any preceding dizziness/CP/SOB/palpitations. Pt was able to get up afterwards with assistance from her daughter. Went to bed last night and woke up today with worsening pain in her R arm and shoulder. Pt has been able to ambulate with walker since the fall (her baseline). - Physicial Exam PE: 03/01/19 11:43 GENERAL: Awake, alert, and fully oriented, in no acute distress. HEAD: No signs of trauma EYES: PERRLA, EOMI, sclera anicteric, conjunctiva clear ENT: Auricles normal inspection, hearing grossly normal, nares patent, oropharynx clear without exudates. Moist mucosa NECK: Nontender, no stepoffs, Normal ROM, supple, no lymphadenopathy, JVD, or masses LUNGS: Breath sounds equal, clear to auscultation bilaterally. No wheezes, and no crackles HEART: Regular rate and rhythm, normal S1 and S2, no murmurs, rubs or gallops ABDOMEN: Soft, nontender, normoactive bowel sounds. No guarding, no rebound. No masses EXTREMITIES: + RUE with tenderness at R shoulder, R elbow, ROM limited 2/2 pain , R knee with abrasion, mild tenderness to patella, no visible deformity NEUROLOGICAL: Cranial nerves II through XII intact. 5/5 strength and sensation in all extremities, Normal speech, normal gait, normal cerebellar function SKIN: Warm, Dry, normal turgor, no rashes or lesions noted. - Medical Decision Making 03/01/19 11:44 88 F with mechanical fall last night, now with RUE and RLE pain. Pt is on xarelto, so will image head as well, though pt denies headstrike. - CT head/c-spine - XR R shoulder, elbow, R knee, R hip - Tylenol 03/01/19 14:55 CTs negative XRs negative on my read Pt reassessed - pain is well controlled Pt is well appearing, with normal vitals. Clinically stable for DC at this time. I discussed the physical exam findings, ancillary test results and final diagnoses with the patient. I answered all of the patient's questions. The patient was satisfied with the care received and felt comfortable with the discharge plan and treatment plan. The patient agrees to follow up with the primary care physician within 24-72 hours.
[2019-03-01] MEDS ORDERED: ACETAMINOPHEN 325 MG TABLET (FP) ONE (11:46)
[2019-03-01 15:13] VITALS: BP 101/65; PULSE 82
== END 2019-03-01 15:12 | disposition home or self-care (01) ==
LOC: JER 10:15
DX: M25.511 Pain in right shoulder (principal); W18.09XA Striking against other object with subsequent fall, initial encounter; Y93.89 Activity, other specified; Y92.018 Other place in single-family (private) house as the place of occurrence of the external cause; Y99.8 Other external cause status; I11.0 Hypertensive heart disease with heart failure; I50.9 Heart failure, unspecified; E78.5 Hyperlipidemia, unspecified; I48.91 Unspecified atrial fibrillation; Z79.01 Long term (current) use of anticoagulants; E03.9 Hypothyroidism, unspecified; Z86.73 Personal history of transient ischemic attack (TIA), and cerebral infarction without residual deficits; R26.89 Other abnormalities of gait and mobility; Z99.89 Dependence on other enabling machines and devices
CPT/HCPCS: 70450-TC; 72100-TC-FY; 72125-TC; 73030-TC-RT-FY; 73060-TC-RT-FY; 73070-TC-RT-FY; 73523-TC-FY; 73560-TC-RT-FY; 99283-25